=== PATIENT | male | born 1985 | race Two or more races ===

== ENCOUNTER 2019-12-14 05:46 | Emergency (ER) | payer MEDICAID ==
[~2019-12-14] VITALS: Ht 167.6 cm; Wt 86.2 kg
[2019-12-14 05:59] VITALS: BP 125/98
[2019-12-14] MEDS ORDERED: Tetanus/Diptheria/Pertussis IM ONE (06:00)
[2019-12-14] MEDS ORDERED: HYDROcodone/Acetamin 5/325 tab ORAL ONE (06:00)
[2019-12-14] MEDS ORDERED: Ondansetron ODT 8mg tab ORAL ONE (06:00)
[2019-12-14] MEDS ORDERED: Ketorolac 30mg Inj IM ONE (06:00)
[2019-12-14] MEDS ORDERED: cefTRIAXone 1 GM in NS 55 ML IVPB ONE (06:15)
[2019-12-14] MEDS ORDERED: Lidocaine 1% Plain 30 ml INJ ONE (06:15)
--- NOTE | 2019-12-14 06:15 | Emergency Room Report ---
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 Patient History Past Medical History: see triage record Reviewed Nursing Documentation: PMH: Agreed; PSxH: Agreed Nursing Documentation-PMH Past Medical History: No Stated History Review of Systems All Other Systems: negative except mentioned in HPI Physical Exam Vital Signs Date Time Temp Pulse Resp B/P (MAP) Pulse Ox O2 Delivery O2 Flow Rate FiO2 12/14/19 05:47 98.2 98 20 125/98 (107) 99 Room Air Sp02 EP Interpretation: reviewed, normal General Appearance: well appearing, no apparent distress, alert Head: normocephalic, atraumatic Eyes: bilateral eye PERRL, bilateral eye EOMI ENT: uvula midline, moist mucus membranes Neck: supple, thyroid normal, supple/symm/no masses Respiratory: lungs clear, no respiratory distress, no retraction, no accessory muscle use Cardiovascular #1: normal peripheral pulses, regular rate, rhythm, no edema, no gallop, no murmur Gastrointestinal: non tender, soft, no guarding, no rebound Musculoskeletal: other - Right upper extremity: 2+ radial pulse, deformity of digit 5 at the DIP open, FDP out, with reduced sensation at the tip, 4th digit laceration ulnar aspect. Neurologic: alert, oriented x3 Psychiatric: mood/affect normal Skin: no rash, warm/dry Procedures Laceration/Wound Repair Laceration/Wound Repair : Consent: Emergent Wound Location: upper extremity Wound's Depth, Shape: into muscle, flap Wound Length (cm): 3 Wound Explored: clean Irrigated w/ Saline (ccs): 2000 Betadine Prep?: Yes Anesthesia: 1% Lidocaine Volume Anesthetic (ccs): 10 Wound Debrided: minimal Wound Repaired With: sutures Suture Size/Type: 4:0, proline Number of Sutures: 13 Layer Closure?: Yes Splint Applied?: Yes Type of Splint Applied: finger splint Patient Tolerated: Well Complications: None Progress Patient with laceration partial amputation of the right fifth digit, at the DIP, area was cleansed, 9 sutures were used 4-0 proline Patient with laceration to the ulnar aspect 4th digit measuring < 1cm requiring 4 sutures 5-0 proline Medical Decision Making Diagnostic Impression: Primary Impression: Open hand fracture Qualified Codes: S62.91XB - Unspecified fracture of right wrist and hand, initial encounter for open fracture Additional Impression: Partial traumatic amputation of right little finger through phalanx Qualified Codes: S68.626A - Partial traumatic transphalangeal amputation of right little finger, initial encounter ER Course 34-year-old male presents with partial amputation of the right fifth digit, 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 Laboratory Tests Test 12/14/19 06:15 White Blood Count 8.0 K/UL (4.8-10.8) Red Blood Count 4.70 M/UL (4.70-6.10) Hemoglobin 14.9 G/DL (14.2-18.0) Hematocrit 43.7 % (42.0-52.0) Mean Corpuscular Volume 93 FL (80-99) Mean Corpuscular Hemoglobin 31.6 PG (27.0-31.0) H Mean Corpuscular Hemoglobin Concent 34.0 G/DL (32.0-36.0) Red Cell Distribution Width 11.7 % (11.6-14.8) Platelet Count 282 K/UL (150-450) Mean Platelet Volume 6.8 FL (6.5-10.1) Neutrophils (%) (Auto) 65.8 % (45.0-75.0) Lymphocytes (%) (Auto) 23.7 % (20.0-45.0) Monocytes (%) (Auto) 6.6 % (1.0-10.0) Eosinophils (%) (Auto) 2.3 % (0.0-3.0) Basophils (%) (Auto) 1.7 % (0.0-2.0) Prothrombin Time 10.7 SEC (9.30-11.50) Prothrombin Time INR 1.0 (0.9-1.1) Activated Partial Thromboplast Time 31 SEC (23-33) Sodium Level 140 MMOL/L (136-145) Potassium Level 3.9 MMOL/L (3.5-5.1) Chloride Level 104 MMOL/L (98-107) Carbon Dioxide Level 27 MMOL/L (21-32) Anion Gap 9 mmol/L (5-15) Blood Urea Nitrogen 12 mg/dL (7-18) Creatinine 1.1 MG/DL (0.55-1.30) Estimated Glomerular Filtration Rate > 60 mL/min (>60) Glucose Level 101 MG/DL (74-106) Calcium Level 8.9 MG/DL (8.5-10.1) Total Bilirubin 0.5 MG/DL (0.2-1.0) Aspartate Amino Transferase (AST) 19 U/L (15-37) Alanine Aminotransferase (ALT) 18 U/L (12-78) Alkaline Phosphatase 83 U/L (46-116) Total Protein 7.6 G/DL (6.4-8.2) Albumin 4.1 G/DL (3.4-5.0) Globulin 3.5 g/dL Albumin/Globulin Ratio 1.2 (1.0-2.7) Microbiology Date/Time Source Procedure Growth Status 12/14/19 06:28 Nasopharynx SARS-CoV-2 RdRp Gene Assay - Final Complete Other X-Ray Diagnostic Results Other X-Ray Diagnostic Results : X-Ray ordered: right hand # of Views/Limited Vs Complete: 3 View Indication: Pain EP Interpretation: Yes Interpretation: other - Partial amputation fifth digit right hand Impression: Other - Partial amputation fifth digit right hand, fracture noted, soft tissue swelling along the fourth digit distally Electronically Signed by: Warren Wolf MD Last Vital Signs Date Time Temp Pulse Resp B/P (MAP) Pulse Ox O2 Delivery O2 Flow Rate FiO2 12/14/19 05:59 98.2 88 20 125/98 99 Room Air Disposition: SHORT-TERM HOSP Condition: Stable Referrals: NOT CHOSEN ZAIRA/,REFERRING (PCP) Warren Wolf MD Dec 14, 2019 06:15
[2019-12-14 06:20] LABS: BASOPHILS % (AUTO) 1.7 % (0.0-2.0); EOSINOPHILS % (AUTO) 2.3 % (0.0-3.0); HEMATOCRIT 43.7 % (42.0-52.0); HEMOGLOBIN 14.9 G/DL (14.2-18.0); LYMPHOCYTES % (AUTO) 23.7 % (20.0-45.0); MEAN CORPUSCULAR VOLUME 93 FL (80-99); MONOCYTES % (AUTO) 6.6 % (1.0-10.0); NEUTROPHILS % (AUTO) 65.8 % (45.0-75.0); PLATELET COUNT 282 K/UL (150-450); RED CELL DISTRIBUTION WIDTH 11.7 % (11.6-14.8)
[2019-12-14 06:33] LABS: ANION GAP 9 mmol/L (5-15); BLOOD UREA NITROGEN 12 mg/dL (7-18); CALCIUM 8.9 MG/DL (8.5-10.1); CARBON DIOXIDE 27 MMOL/L (21-32); CHLORIDE 104 MMOL/L (98-107); CREATININE 1.1 MG/DL (0.55-1.30); POTASSIUM 3.9 MMOL/L (3.5-5.1); SODIUM 140 MMOL/L (136-145)
[2019-12-14 06:37] LABS: ALANINE AMINOTRANSFERASE 18 U/L (12-78); ALBUMIN 4.1 G/DL (3.4-5.0); ALBUMIN/GLOBULIN RATIO 1.2 (1.0-2.7); ALKALINE PHOSPHATASE 83 U/L (46-116); ASPARTATE AMINO TRANSFERASE 19 U/L (15-37); BILIRUBIN,TOTAL 0.5 MG/DL (0.2-1.0)
[2019-12-14 08:57] VITALS: BP 118/70
--- NOTE | 2019-12-14 16:52 | Diagnostic Imaging Report ---
Indication: Right hand pain Technique: 3 views right hand Comparison: none Findings: The distal aspect of the fifth proximal phalanx is completely detached from the proximal aspect and there are a few intervening bone fragments. There appears to be soft tissue continuing treatment soft tissue injury. There is also evidence of soft tissue injury to the ulnar aspect of the fourth digit. No radiopaque foreign body demonstrated. The other digits appear to be intact. Impression: Evidence of traumatic partial amputation of the fifth digit, with complete separation of the fifth proximal phalanx Evidence of soft tissue injury to the fourth digit without bony injury. No radiopaque foreign body This agrees with the preliminary interpretation reported by the emergency room physician in the electronic medical record
== END 2019-12-14 08:45 | disposition short-term general hospital (02) ==
LOC: EDBD 05:46 → EMR 06:00
DX: S68.626A Partial traumatic transphalangeal amputation of right little finger, initial encounter (principal); S62.91XB Unspecified fracture of right hand, initial encounter for open fracture; W26.0XXA Contact with knife, initial encounter; Y92.9 Unspecified place or not applicable; Z23 Encounter for immunization
CPT/HCPCS: 13132; 36415; 73130; 80053; 85025; 85610; 85730; 90471; 90715; 96365; 96372; J0696; J1885; J2001; Q0162; U0002; Z7502; 99284